=== PATIENT | male | born 1990 | race Caucasian/White ===

== ENCOUNTER 2017-04-14 20:48 | Emergency (ER) | payer OTHER ==
[~2017-04-14] VITALS: Ht 182.9 cm; Wt 111.5 kg
[2017-04-14] MEDS ORDERED: MAALOX/HYOSCYAMINE/LIDOCAINE 45 ML BTL PO ONE (21:30)
[2017-04-14 21:57] LABS: HEMATOCRIT 44.3 % (39.2-51.8); HEMOGLOBIN 14.9 g/dL (13.7-18.0); WHITE BLOOD COUNT 7.8 x10^3/uL (3.4-10)
[2017-04-14 22:07] LABS: BLOOD UREA NITROGEN 19 mg/dL (7-18)
[2017-04-14 22:11] LABS: IS PT STATUS REG ER OR PRE ER? YES
[2017-04-14] MEDS ORDERED: MAALOX/HYOSCYAMINE/LIDOCAINE 45 ML BTL ONE (22:18)
[2017-04-14 22:45] VITALS: BP 115/67
== END 2017-04-14 22:56 | disposition home or self-care (01) ==
LOC: ED 22:45
DX: R07.2 Precordial pain (principal); R19.7 Diarrhea, unspecified
CPT/HCPCS: 36415; 71010; 80048; 82040; 84484; 85025; 93005; 99285